=== PATIENT | male | born 1940 | race Two or more races ===

== ENCOUNTER 2016-07-17 13:54 | Inpatient (IN) | payer MEDICARE, BC ==
[~2016-07-17] VITALS: Ht 182.9 cm; Wt 83.9 kg
--- NOTE | 2016-07-17 14:26 | NUR ---
AAOX3, BIB FAMILY FOR MED.CLEARANCE PRIOR TO GPS ADMISSION FOR INCREASED AGITATION AND YELLING AT STAFF IN HIS CARE CENTER. PATIENT WAS CALM AT BS. SKIN IS WARM AND DRY. RESP IS EVEN AND UNLABORED WITH NAD NOTED. AWAITING MD FOR EVAL.
[2016-07-17] MEDS ORDERED: LORAZEPAM 1 MG TABLET ONE (15:10)
[2016-07-17] MEDS ORDERED: LORAZEPAM 1 MG TABLET PO ONE (15:30)
[2016-07-17 15:37] LABS: BASOPHILS % (AUTO) 0.6 % (0.0-2.0); EOSINOPHILS # (AUTO) 0.1 /CMM (0.0-0.7); EOSINOPHILS % (AUTO) 1.2 % (0.0-6.0); HEMATOCRIT 39 % (39-51); HEMOGLOBIN 13.3 g/dL (13.5-17.5); LYMPHOCYTES # (AUTO) 1.8 /CMM (0.8-4.8); LYMPHOCYTES % (AUTO) 27.7 % (20.0-44.0); MEAN CORPUSCULAR HEMOGLOBIN 30 PG (26.0-33.0); MEAN CORPUSCULAR HGB CONC 34 g/dl (31.0-36.0); MEAN CORPUSCULAR VOLUME 87 fL (80-96); MONOCYTES # (AUTO) 0.7 /CMM (0.1-1.30); MONOCYTES % (AUTO) 9.9 % (2.0-12.0); NEUTROPHILS % (AUTO) 60.6 % (43.0-81.0); PLATELET COUNT (AUTO) 185 /CMM (150-450); RDW COEFFICIENT OF VARIATION 13.1 (11.5-15.0); RED BLOOD CELL COUNT(AUTO) 4.45 MIL/uL (4.5-6.0); WHITE BLOOD COUNT (AUTO) 6.6 K/uL (4.3-11.0)
[2016-07-17 15:48] LABS: CALCIUM, SERUM 9.4 mg/dL (8.5-10.1); CARBON DIOXIDE 29 mmol/L (21-32); CHLORIDE 102 mmol/L (98-107); CREATININE 1.7 mg/dL (0.6-1.3); GLUCOSE 112 mg/dL (74-106); SODIUM SERUM 140 mmol/L (136-145); UREA NITROGEN, BLOOD 29 mg/dL (7-18)
[2016-07-17 15:50] LABS: POTASSIUM 2.8 mmol/L (3.5-5.1)
[2016-07-17 15:53] LABS: INR 3.09 (0.87-1.13); PROTHROMBIN TIME 32.4 SECS (9.5-12.7)
[2016-07-17 16:02] LABS: ALANINE AMINOTRANSFERASE 32 U/L (12-78); ALBUMIN 3.5 g/dL (3.4-5.0); ALKALINE PHOSPHATASE 51 U/L (46-116); ASPARTATE AMINOTRANSFERASE 25 U/L (15-37); BILIRUBIN,DIRECT 0.3 mg/dL (0.0-0.2); BILIRUBIN,TOTAL 1.2 mg/dL (0.2-1.0)
[2016-07-17 16:04] LABS: SALICYLATE 0.3 mg/dL (2.8-20.0)
[2016-07-17] MEDS ORDERED: POTASSIUM CHLORIDE 20 MEQ TAB.PRT.SR PO ONE (16:04)
[2016-07-17 16:05] LABS: ACETAMINOPHEN 0 ug/ml (10-30); ALCOHOL, BLOOD < 3 mg/dL (0-0)
--- NOTE | 2016-07-17 16:08 | NUR ---
REPORT GIVEN TO MAXIMO LOPEZ FOR CHRISTIANO
[2016-07-17] MEDS ORDERED: POTASSIUM CHLORIDE 10 MEQ TABLET.SA PO ONE (16:30)
--- NOTE | 2016-07-17 16:30 | NUR ---
REVIEW NURSE NOTE: ADMITTED 76 Y/O MALE FROM ER ON 5150 HOLD FOR GD PER 5150 HOLD PATIENT HAS BEEN UNCOOPERATIVE WITH CARE AND FAMILY .PER FAMILY PATIENT LOSING WEIGHT D/T NOT EATING AND PATIENT AGITATED IN FACILITY.DURING 1:1 ASSESSMENT PATIENT ALERT CONFUSED EASILY AGITATED ,NOT FOLLOWING DIRECTION ,PATIENT STATED LET ME .LET ME GO PATIENT NEEDS CONSTANT REDIRECTION .UNSTEADY GAIT ,PATIENT HAS HX OF DSYTHYMIA,MALIGNANT TUMOR OF PROSTATE,VARCOICOSE VEINS OF LOWER EXTREMITY,ALZHEIMER DISEASE HYPERCHOLESTEROLEMIA,KIDNEY STONE. PATIENT SEEN BY ,DR.SIMONA DICKERSONOPATHY NOTIFIED OF ADMISSION .ALL BELONGINGS CHECKED IN BY STAFF MHW,PATIENT'S RIGHT HAND BOOK GIVEN AND EXPLAINED TO PATIENT .START PATIENT ON Q15 MINUTES SAFTEY CHECK.
[2016-07-17] MEDS ORDERED: MEMA10TA21 PO (16:42)
[2016-07-17] MEDS ORDERED: CHOL50004 PO (16:42)
[2016-07-17] MEDS ORDERED: WARF3TAB29 PO (16:42)
[2016-07-17] MEDS ORDERED: MEGE400O PO (16:42)
[2016-07-17] MEDS ORDERED: SIMV20TA6 PO (16:42)
[2016-07-17] MEDS ORDERED: CITA10TA17 PO (16:42)
[2016-07-17] MEDS ORDERED: POTA10TA15 PO (16:42)
[2016-07-17] MEDS ORDERED: MULT1TAB74 PO (16:42)
[2016-07-17] MEDS ORDERED: HYDR12.5 PO (16:42)
[2016-07-17] MEDS ORDERED: LEVO250S7 PO (16:42)
[2016-07-17] MEDS ORDERED: TAMS0.4C34 PO (16:42)
[2016-07-17] MEDS ORDERED: WARF2TAB6 PO (16:46)
[2016-07-17] MEDS ORDERED: ACET325T53 PO (16:46)
[2016-07-17] MEDS ORDERED: MAGN400O6 PO (16:52)
[2016-07-17] MEDS ORDERED: DOCU-25 PO (16:52)
[2016-07-17] MEDS ORDERED: MAG HYDROX/AL HYDROX/SIMETH 30 ML UDC PO PRN (17:30)
[2016-07-17] MEDS ORDERED: MAGNESIUM HYDROXIDE 30 ML UDC PO PRN (17:30)
[2016-07-17 19:56] VITALS: BP 99/63
[2016-07-17] MEDS: ZOLPIDEM TARTRATE 10 MG TABLET PO PRN (21:36)
[2016-07-17] MEDS: SERTRALINE HCL 25 MG TABLET PO SCH (21:36)
[2016-07-18] MEDS: LORAZEPAM 0.5 MG TABLET PO PRN (01:56)
[2016-07-18] MEDS: ACETAMINOPHEN 325 MG TABLET PO PRN (01:56)
--- NOTE | 2016-07-18 05:37 | NUR ---
GPS RN NOTE: MED RECONCILIATION FOLLOWED UP TO LE[facility]ON FAROOQ.
[2016-07-18 07:20] LABS: INR 2.68 (0.87-1.13); PROTHROMBIN TIME 29.2 SECS (9.5-12.7)
[2016-07-18 07:21] LABS: ALBUMIN 3.5 g/dL (3.4-5.0); BILIRUBIN,TOTAL 1.2 mg/dL (0.2-1.0); CALCIUM, SERUM 9.7 mg/dL (8.5-10.1); CREATININE 1.6 mg/dL (0.6-1.3)
[2016-07-18 07:25] LABS: CHOLESTEROL 130 mg/dL (<200); HDL CHOLESTEROL 35 mg/dL (40-60); LDL 85 mg/dL (0-99); TRIGLYCERIDES 91 mg/dL (30-150)
[2016-07-18 08:05] LABS: POTASSIUM 2.8 mmol/L (3.5-5.1)
[2016-07-18] MEDS: ARIPIPRAZOLE 2 MG TABLET PO SCH ×2 (08:46→17:37)
[2016-07-18 08:53] VITALS: BP 114/63
[2016-07-18] MEDS ORDERED: POTASSIUM CHLORIDE 20 MEQ TAB.PRT.SR PO ONE ×2 (09:00→13:30)
[2016-07-18] MEDS ORDERED: MAGNESIUM HYDROXIDE 30 ML UDC PO PRN (14:00)
[2016-07-18] MEDS ORDERED: ACETAMINOPHEN 325 MG TABLET PO PRN (14:00)
[2016-07-18] MEDS ORDERED: MULTIVITS,TH W-FE,OTHER MIN 1 TAB TABLET PO SCH (14:30)
[2016-07-18 16:02] VITALS: BP 100/59
[2016-07-18] MEDS: MEMANTINE HCL 5 MG TABLET PO SCH (17:37)
--- NOTE | 2016-07-18 17:41 | NUR ---
Initial discharge plan: Pt. is from [facility] [address] [place] [address] . Per pt's daughter, Hedy Carrizales [phone], the family is looking into moving the patient to another facility. Pt may need to go to a SNF first before he is transferred to either back to [facility] or the new facility. SW will work with pt. and family and will arrange for safe and proper discharge. Pt's ex , Kathy Carrizales is also involved [phone].
[2016-07-18] MEDS: WARFARIN SODIUM 2 MG TABLET PO SCH (18:12)
[2016-07-18 20:00] VITALS: BP 101/61
[2016-07-18] MEDS: SIMVASTATIN 20 MG TABLET PO SCH (21:17)
[2016-07-18] MEDS: SERTRALINE HCL 25 MG TABLET PO SCH (21:17)
[2016-07-19 07:51] LABS: BASOPHILS % (AUTO) 0.4 % (0.0-2.0); EOSINOPHILS # (AUTO) 0.2 /CMM (0.0-0.7); EOSINOPHILS % (AUTO) 3.5 % (0.0-6.0); HEMATOCRIT 40 % (39-51); HEMOGLOBIN 13.3 g/dL (13.5-17.5); LYMPHOCYTES # (AUTO) 1.8 /CMM (0.8-4.8); LYMPHOCYTES % (AUTO) 29.9 % (20.0-44.0); MEAN CORPUSCULAR HEMOGLOBIN 30 PG (26.0-33.0); MEAN CORPUSCULAR HGB CONC 34 g/dl (31.0-36.0); MEAN CORPUSCULAR VOLUME 89 fL (80-96); MONOCYTES # (AUTO) 0.6 /CMM (0.1-1.30); MONOCYTES % (AUTO) 10.9 % (2.0-12.0); NEUTROPHILS # (AUTO) 3.3 /CMM (1.8-8.9); NEUTROPHILS % (AUTO) 55.3 % (43.0-81.0); PLATELET COUNT (AUTO) 188 /CMM (150-450); RDW COEFFICIENT OF VARIATION 14.3 (11.5-15.0); RED BLOOD CELL COUNT(AUTO) 4.47 MIL/uL (4.5-6.0); WHITE BLOOD COUNT (AUTO) 5.9 K/uL (4.3-11.0)
[2016-07-19 08:00] VITALS: BP 119/69
[2016-07-19 08:21] LABS: CALCIUM, SERUM 9.4 mg/dL (8.5-10.1); CREATININE 1.4 mg/dL (0.6-1.3); PHOSPHORUS 3.2 mg/dL (2.5-4.9); POTASSIUM 3.5 mmol/L (3.5-5.1)
[2016-07-19 08:24] LABS: INR 2.34 (0.87-1.13); PROTHROMBIN TIME 25.5 SECS (9.5-12.7)
[2016-07-19] MEDS: MEGESTROL ACETATE SUSP 400 MG/10 ML UDC PO SCH (08:34)
[2016-07-19] MEDS: TAMSULOSIN 0.4 MG CAP.SR.24H PO SCH (08:34)
[2016-07-19] MEDS: MULTIVIT, IRON, MIN NO. 8, FA 1 TAB TABLET PO SCH (08:34)
[2016-07-19] MEDS: MEMANTINE HCL 5 MG TABLET PO SCH ×2 (08:34→16:56)
[2016-07-19] MEDS: ARIPIPRAZOLE 2 MG TABLET PO SCH ×2 (08:35→16:56)
[2016-07-19] MEDS: CHOLECALCIFEROL 1,000 UNIT TABLET (VIT D3) PO SCH (08:37)
--- NOTE | 2016-07-19 10:00 | NUR ---
PATIENT WAS BROUGHT DOWN TO CT. PATIENT THEN REFUSED TO DO CT CHEST.
--- NOTE | 2016-07-19 15:11 | NUR ---
DR. GARCIA NOTIFIED THAT PT IS 25.5 QND INR 2.34 AND SAID CONTINUE SAME DOSE OF COUMADIN 2 MG.
[2016-07-19 16:00] VITALS: BP 117/62
[2016-07-19] MEDS: WARFARIN SODIUM 2 MG TABLET PO SCH (16:57)
[2016-07-19 20:00] VITALS: BP 98/60
[2016-07-19] MEDS: SIMVASTATIN 20 MG TABLET PO SCH (21:33)
[2016-07-19] MEDS: SERTRALINE HCL 25 MG TABLET PO SCH (21:33)
[2016-07-20 07:45] VITALS: BP 113/66
[2016-07-20] MEDS: ARIPIPRAZOLE 2 MG TABLET PO SCH ×2 (09:32→17:00)
[2016-07-20] MEDS: MEGESTROL ACETATE SUSP 400 MG/10 ML UDC PO SCH (09:32)
[2016-07-20] MEDS: MULTIVIT, IRON, MIN NO. 8, FA 1 TAB TABLET PO SCH (09:32)
[2016-07-20] MEDS: POTASSIUM CHLORIDE 10 MEQ TABLET.SA PO SCH (09:34)
[2016-07-20] MEDS: TAMSULOSIN 0.4 MG CAP.SR.24H PO SCH (09:34)
[2016-07-20] MEDS: MEMANTINE HCL 5 MG TABLET PO SCH ×2 (09:34→17:56)
[2016-07-20] MEDS: LORAZEPAM 0.5 MG TABLET PO PRN (11:11)
[2016-07-20 16:52] VITALS: BP 125/68
[2016-07-20] MEDS: WARFARIN SODIUM 2 MG TABLET PO SCH (18:01)
--- NOTE | 2016-07-20 19:30 | NUR ---
GPS NOTES RECIEVED PATIENT SITTING IN THE DAY ROOM. NO SIGNS OF DISTRESS NOTED. NO FACIAL GRIMACING OR OTHER SIGNS OF PAIN. APPEARS TO BE AGITATED AND IS YELLING AT STAFF. SAFETY MEASURES IMPLEMENTED. WILL CONTINUE TO MONITOR
[2016-07-20 20:00] VITALS: BP 103/64
[2016-07-20] MEDS: SIMVASTATIN 20 MG TABLET PO SCH (21:41)
[2016-07-20] MEDS: MIRTAZAPINE 15 MG TABLET PO SCH (21:44)
--- NOTE | 2016-07-20 22:00 | NUR ---
GPS NOTES PATIENT TOOK MEDICATION CRUSHED WITH APPLESAUCE. ENCOURAGED PATIENT TO FINISH APPLESAUCE BUT PATIENT BECAME AGITATED AND SAID TO LEAVE HIM ALONE.
--- NOTE | 2016-07-21 03:18 | NUR ---
GPS NOTES PATIENT ASLEEP, BREATHING EVEN AND UNLABORED. NO SIGNS OF DISTRESS NOTED. WILL CONTINUE TO MONITOR
--- NOTE | 2016-07-21 06:24 | NUR ---
GPS NOTES PATIENT ASLEEP, EASILY AROUSABLE TO TOUCH. BREATHING EVEN AND UNLABORED. NO S/S OF DISTRESS OR PAIN NOTED. ALL DUE MEDS ADMINISTERED, CRUSHED WITH APPLESAUCE. EASILY AGITATED, YELLS TO "GO AWAY" AND THAT HE WANTS TO BE LEFT ALONE. PT EVAL PENDING. NO CHANGES OVERNIGHT. BED IN LOW/LOCKED POSITION. BED ALARM ON. WILL ENDORSE TO AM SHIFT CHRISTIANO.
[2016-07-21 08:40] LABS: INR 3.07 (0.87-1.13); PROTHROMBIN TIME 33.5 SECS (9.5-12.7)
[2016-07-21] MEDS: MEGESTROL ACETATE SUSP 400 MG/10 ML UDC PO SCH (09:34)
[2016-07-21] MEDS: ARIPIPRAZOLE 2 MG TABLET PO SCH ×2 (09:34→17:56)
[2016-07-21] MEDS: TAMSULOSIN 0.4 MG CAP.SR.24H PO SCH (09:34)
[2016-07-21] MEDS: MULTIVIT, IRON, MIN NO. 8, FA 1 TAB TABLET PO SCH (09:34)
[2016-07-21] MEDS: MEMANTINE HCL 5 MG TABLET PO SCH ×2 (09:35→17:56)
[2016-07-21] MEDS: LORAZEPAM 0.5 MG TABLET PO PRN ×2 (09:38→16:47)
--- NOTE | 2016-07-21 09:38 | NUR ---
administered ativan 0.5 mg po prn for anxiety yelling, screaming, paranoia, v/s taken bp-130/80, p-80, continued monitoring.
[2016-07-21 10:14] VITALS: BP 130/80
[2016-07-21 15:43] VITALS: BP 125/82
[2016-07-21] MEDS: WARFARIN SODIUM 2 MG TABLET PO SCH (17:00)
[2016-07-21 17:13] LABS: APPEARANCE,URINE CLEAR (CLEAR); BILIRUBIN,URINE NEGATIVE (NEGATIVE); BLOOD, URINE NEGATIVE Ery/uL (NEGATIVE); COLOR,URINE YELLOW (YELLOW); KETONES,URINE 1+ (NEGATIVE); LEUKOCYTE ESTERASE ,URINE NEGATIVE (NEGATIVE); NITRITE, URINE NEGATIVE (NEGATIVE); PROTEIN,URINE TRACE mg/dl (NEGATIVE); UGLUCOSE NEGATIVE (NEGATIVE)
[2016-07-21 17:16] LABS: ADD URINE CULTURE NO; BACTERIA,URINE Few /HPF (None Seen); RBC,URINE 0-2 /HPF (0-2); SQUAMOUS EPITHELIAL CELL,UR Rare /HPF (None Seen); WBC,URINE 0-2 /HPF (0-3)
[2016-07-21 17:17] LABS: HYALINE CASTS, URINE Few /LPF (None Seen)
--- NOTE | 2016-07-21 18:19 | NUR ---
GPS/RN COUMADIN HELD AT 1700, PER DR RADHA GUTIERREZ. INR 3.7
[2016-07-21 20:08] VITALS: BP 126/76
[2016-07-21] MEDS: MIRTAZAPINE 15 MG TABLET PO SCH (21:46)
[2016-07-21] MEDS: SIMVASTATIN 20 MG TABLET PO SCH (21:46)
--- NOTE | 2016-07-22 01:10 | NUR ---
Pt has been fragmented, confused, disorganized, blunted, giving unrelated responses to the questions asked, & vague but med compliant.
[2016-07-22 07:43] LABS: INR 2.7 (0.87-1.13); PROTHROMBIN TIME 29.4 SECS (9.5-12.7)
[2016-07-22 08:00] VITALS: BP 119/55
[2016-07-22] MEDS: ARIPIPRAZOLE 2 MG TABLET PO SCH ×2 (08:48→16:24)
[2016-07-22] MEDS: DOCUSATE SODIUM 100 MG CAPSULE PO PRN (08:48)
[2016-07-22] MEDS: CHOLECALCIFEROL 1,000 UNIT TABLET (VIT D3) PO SCH (08:48)
[2016-07-22] MEDS: MULTIVIT, IRON, MIN NO. 8, FA 1 TAB TABLET PO SCH (08:48)
[2016-07-22] MEDS: MEMANTINE HCL 5 MG TABLET PO SCH ×2 (08:48→16:24)
[2016-07-22] MEDS: TAMSULOSIN 0.4 MG CAP.SR.24H PO SCH (08:48)
[2016-07-22] MEDS: POTASSIUM CHLORIDE 10 MEQ TABLET.SA PO SCH (08:49)
[2016-07-22] MEDS: MEGESTROL ACETATE SUSP 400 MG/10 ML UDC PO SCH (08:49)
[2016-07-22] MEDS: BOOST FOOD- BERRY 237 ML BOX PO SCH (14:29)
[2016-07-22 16:00] VITALS: BP 150/61
[2016-07-22] MEDS: WARFARIN SODIUM 2 MG TABLET PO SCH (16:25)
--- NOTE | 2016-07-22 17:30 | NUR ---
gps staff command and control officer: notes dr. lockwood here to see pt and informed md that pt's daughter wants to be called for update. phone number given to .
[2016-07-22] MEDS: SIMVASTATIN 20 MG TABLET PO SCH (21:55)
[2016-07-22] MEDS: MIRTAZAPINE 15 MG TABLET PO SCH (21:56)
[2016-07-22] MEDS: ZOLPIDEM TARTRATE 10 MG TABLET PO PRN (21:56)
[2016-07-23 03:47] VITALS: BP 138/77
[2016-07-23] MEDS: BOOST FOOD- BERRY 237 ML BOX PO SCH ×3 (06:00→13:13)
[2016-07-23 07:38] LABS: INR 2.4 (0.87-1.13); PROTHROMBIN TIME 26.2 SECS (9.5-12.7)
[2016-07-23 08:00] VITALS: BP 134/74
[2016-07-23] MEDS: TAMSULOSIN 0.4 MG CAP.SR.24H PO SCH (08:27)
[2016-07-23] MEDS: MEGESTROL ACETATE SUSP 400 MG/10 ML UDC PO SCH (08:28)
[2016-07-23] MEDS: MEMANTINE HCL 5 MG TABLET PO SCH ×2 (08:28→17:28)
[2016-07-23] MEDS: MULTIVIT, IRON, MIN NO. 8, FA 1 TAB TABLET PO SCH (08:28)
[2016-07-23 16:17] VITALS: BP 113/77
[2016-07-23] MEDS: WARFARIN SODIUM 2 MG TABLET PO SCH (17:30)
[2016-07-23 20:06] VITALS: BP 157/85
[2016-07-23] MEDS ORDERED: ARIPIPRAZOLE 2 MG TABLET PO SCH (22:00)
[2016-07-23] MEDS: ARIPIPRAZOLE 2 MG TABLET PO SCH (22:09)
[2016-07-23] MEDS: MIRTAZAPINE 15 MG TABLET PO SCH (22:10)
[2016-07-23] MEDS: ZOLPIDEM TARTRATE 10 MG TABLET PO PRN (22:11)
[2016-07-23] MEDS: SIMVASTATIN 20 MG TABLET PO SCH (22:11)
[2016-07-24] MEDS: BOOST FOOD- BERRY 237 ML BOX PO SCH ×3 (06:01→14:23)
[2016-07-24 07:57] LABS: INR 2.3 (0.87-1.13)
[2016-07-24 08:19] VITALS: BP 120/69
--- NOTE | 2016-07-24 09:22 | NUR ---
EDY spoke with Hedy Carrizales [phone] on the phone, pt's daughter, who requested to speak with the MD. EDY sent information to MD to contact the family. EDY and Hedy discussed placement options and what would happen after discharge.
--- NOTE | 2016-07-24 09:23 | NUR ---
Pt. was referred and accepted to [facility] [address], [place] [address] . Daughter, Hedy [phone] was notified. Addendum: 08/01/16 at 1438 by ABRAN SNOW Maciel Quezada from Admission pt is accepted.
[2016-07-24] MEDS: CHOLECALCIFEROL 1,000 UNIT TABLET (VIT D3) PO SCH (09:52)
[2016-07-24] MEDS: MEGESTROL ACETATE SUSP 400 MG/10 ML UDC PO SCH (09:53)
[2016-07-24] MEDS: MULTIVIT, IRON, MIN NO. 8, FA 1 TAB TABLET PO SCH (09:53)
[2016-07-24] MEDS: TAMSULOSIN 0.4 MG CAP.SR.24H PO SCH (09:53)
[2016-07-24] MEDS: MEMANTINE HCL 5 MG TABLET PO SCH ×2 (09:53→18:12)
[2016-07-24] MEDS: POTASSIUM CHLORIDE 10 MEQ TABLET.SA PO SCH (09:54)
[2016-07-24 15:41] VITALS: BP 130/70
[2016-07-24] MEDS: DOCUSATE SODIUM 100 MG CAPSULE PO PRN (18:12)
[2016-07-24] MEDS: WARFARIN SODIUM 2 MG TABLET PO SCH (18:19)
--- NOTE | 2016-07-24 19:30 | NUR ---
RN NOTES RECEIVED PT. AWAKE SITTING ON THE TONI CHAIR, WATCHING TV ON THE DINING ROOM WILL CONTINUE TO MONITOR
[2016-07-24 20:00] VITALS: BP 129/79
[2016-07-24 20:30] VITALS: BP 129/79
[2016-07-24] MEDS: ARIPIPRAZOLE 2 MG TABLET PO SCH (22:03)
[2016-07-24] MEDS: SIMVASTATIN 20 MG TABLET PO SCH (22:03)
[2016-07-24] MEDS: MIRTAZAPINE 15 MG TABLET PO SCH (22:03)
[2016-07-25] MEDS: ZOLPIDEM TARTRATE 10 MG TABLET PO PRN ×2 (02:07→22:02)
[2016-07-25] MEDS: BOOST FOOD- BERRY 237 ML BOX PO SCH ×3 (05:56→15:24)
--- NOTE | 2016-07-25 06:17 | NUR ---
RN NOTES PT REFUSED STRAIGHT CATH
[2016-07-25 07:30] LABS: INR 2.49 (0.87-1.13); PROTHROMBIN TIME 27.1 SECS (9.5-12.7)
[2016-07-25 08:00] VITALS: BP 153/91
[2016-07-25] MEDS ORDERED: ARIPIPRAZOLE 2 MG TABLET PO SCH (09:00)
[2016-07-25] MEDS: TAMSULOSIN 0.4 MG CAP.SR.24H PO SCH (09:20)
[2016-07-25] MEDS: MULTIVIT, IRON, MIN NO. 8, FA 1 TAB TABLET PO SCH (09:20)
[2016-07-25] MEDS: MEGESTROL ACETATE SUSP 400 MG/10 ML UDC PO SCH (09:20)
[2016-07-25] MEDS: MEMANTINE HCL 5 MG TABLET PO SCH ×2 (09:20→18:21)
--- NOTE | 2016-07-25 10:10 | NUR ---
WOUND CARE CONSULT: PATIENT SEEN AND SKIN ASSESSMENT DONE. PATIENT INCONTINENT, JOSELO 17, AMBULATORY, INDEPENDENT WITH BED MOBILITY. SEE TODAY'S SKIN ASSESSMENT IN PCS ALONG WITH RECOMMENDATIONS DISCUSSED WITH NURSING STAFF INCLUDING MOISTURE PROTECTION WITH Z GUARD ORDERED. IN AGREEMENT WITH PLAN OF CARE. Addendum: 07/25/16 at 1012 by LUIS ANGEL HOWARD WNDNU Amended: Links added.
[2016-07-25] MEDS ORDERED: Z GUARD REMEDY 2 OZ OINT TP PRN (10:30)
[2016-07-25] MEDS: NEOMY SULF/BACITRAC ZN/POLY 15 GM TUBE TP SCH (11:12)
[2016-07-25 16:00] VITALS: BP 147/85
[2016-07-25] MEDS: WARFARIN SODIUM 2 MG TABLET PO SCH (18:22)
[2016-07-25 20:00] VITALS: BP 115/71
[2016-07-25] MEDS ORDERED: OLANZAPINE 2.5 MG TABLET PO SCH (22:00)
[2016-07-25] MEDS: MIRTAZAPINE 15 MG TABLET PO SCH (22:02)
[2016-07-25] MEDS: SIMVASTATIN 20 MG TABLET PO SCH (22:02)
[2016-07-26] MEDS: BOOST FOOD- BERRY 237 ML BOX PO SCH ×3 (07:42→14:15)
[2016-07-26 07:47] LABS: INR 2.1 (0.87-1.13); PROTHROMBIN TIME 23.6 SECS (9.5-12.7)
[2016-07-26 08:05] VITALS: BP 152/75
[2016-07-26] MEDS: MEGESTROL ACETATE SUSP 400 MG/10 ML UDC PO SCH (08:05)
[2016-07-26] MEDS: MEMANTINE HCL 5 MG TABLET PO SCH ×2 (08:05→16:54)
[2016-07-26] MEDS: POTASSIUM CHLORIDE 10 MEQ TABLET.SA PO SCH (08:05)
[2016-07-26] MEDS: TAMSULOSIN 0.4 MG CAP.SR.24H PO SCH (08:05)
[2016-07-26] MEDS: MULTIVIT, IRON, MIN NO. 8, FA 1 TAB TABLET PO SCH (08:05)
[2016-07-26] MEDS: CHOLECALCIFEROL 1,000 UNIT TABLET (VIT D3) PO SCH (08:06)
[2016-07-26] MEDS: NEOMY SULF/BACITRAC ZN/POLY 15 GM TUBE TP SCH (10:28)
--- NOTE | 2016-07-26 11:36 | NUR ---
ESVIN ADLER NOTIFIED ABOUT THE PT OF 23.6 AND INR 2.10 SAID CONTINUE SAME DOSE OF COUMADIN 2 MG.
[2016-07-26 16:00] VITALS: BP 103/81
[2016-07-26] MEDS: WARFARIN SODIUM 2 MG TABLET PO SCH (16:54)
--- NOTE | 2016-07-26 19:30 | NUR ---
GPS RN NOTE, RECEIVED PATIENT AWAKE AND IN BED, NO S/S OR COMPLAINTS OF PAIN AT THIS TIME. PATIENT IS DISPLAYING NO S/S OF APPARENT DISTRESS AT THIS TIME. PATIENT BREATHING IS UNLABORED WITH EQUAL RISE AND FALL OF THE CHEST. PATIENT IS ALERT AND ORIENTED X 1 ON ROOM AIR WITH A SPO2 99%. PATIENT COMPLIANT WITH MEDICATIONS, ANXIOUS, EASILY AGITATED WITH CARE, DISORGANIZED, CONFUSED AT TIMES, AND NEEDS REORIENTATION. PATIENT DENIES SUICIDE AND HOMICIDAL IDEATIONS AT THIS TIME. PATIENT ASSISTED WITH TURNING AND REPOSITIONING Q2HR AND PRN FOR COMFORT AND CIRCULATION. PATIENT HAS NO NEEDS AT THIS TIME. PATIENT REFUSED SKIN ASSESSMENT TODAY. PATIENT EDUCATED ON THE USE OF THE CALL POST. PATIENT BED SIDE RAILS UP X2 FOR SAFETY, BED IS LOCKED AND LOW WILL CONTINUE TO MONITOR AND MAINTAIN SAFETY.
[2016-07-26 20:00] VITALS: BP 133/77
[2016-07-26] MEDS: SIMVASTATIN 20 MG TABLET PO SCH (21:44)
[2016-07-26] MEDS: OLANZAPINE 2.5 MG TABLET PO SCH (21:44)
[2016-07-26] MEDS: MIRTAZAPINE 15 MG TABLET PO SCH (21:44)
--- NOTE | 2016-07-27 08:00 | NUR ---
RN NOTES RECEIVED PT RESTING BED WITH NAD. NOTED WITH CONFUSION, REDIRECTED AND REORIENTED PT TO REALITY. SAFETY ENSURED. NO SUICIDAL OR HOMICIDAL IDEATION NOTED.
[2016-07-27 08:23] VITALS: BP 167/74
[2016-07-27] MEDS: MEMANTINE HCL 5 MG TABLET PO SCH ×2 (08:49→16:40)
[2016-07-27] MEDS: MULTIVIT, IRON, MIN NO. 8, FA 1 TAB TABLET PO SCH (08:49)
[2016-07-27] MEDS: MEGESTROL ACETATE SUSP 400 MG/10 ML UDC PO SCH (08:49)
[2016-07-27] MEDS: TAMSULOSIN 0.4 MG CAP.SR.24H PO SCH (08:49)
[2016-07-27] MEDS: NEOMY SULF/BACITRAC ZN/POLY 15 GM TUBE TP SCH (08:50)
[2016-07-27] MEDS: BOOST FOOD- BERRY 237 ML BOX PO SCH ×2 (10:00→14:00)
[2016-07-27 16:00] VITALS: BP 118/77
[2016-07-27 16:11] VITALS: BP 118/77
[2016-07-27] MEDS: WARFARIN SODIUM 2 MG TABLET PO SCH (16:51)
--- NOTE | 2016-07-27 19:06 | NUR ---
RN CLOSING NOTES PT ON GERICHAIR AND REMAINS CONFUSED. MED GIVEN CRUSHED, COMPLIANT WITH MEDS. WILL ENDORSE TO NEXT SHIFT FOR CONTINUITY OF CARE IN STABLE CONDITION
[2016-07-27] MEDS: LORAZEPAM 0.5 MG TABLET PO PRN (19:54)
--- NOTE | 2016-07-27 19:54 | NUR ---
GPS/RN NOTE: PATIENT AWAKE, CONFUSED, FIDGETY, ATTEMPTING TO GET UP, FALL RISK, FALL PRECAUTIONARY MEASURES MAINTAINED. WILL CONTINUE TO MONITOR FOR SAFETY
[2016-07-27 20:00] VITALS: BP 126/69
[2016-07-27] MEDS: MIRTAZAPINE 15 MG TABLET PO SCH (21:02)
[2016-07-27] MEDS: OLANZAPINE 2.5 MG TABLET PO SCH (21:02)
[2016-07-27] MEDS: SIMVASTATIN 20 MG TABLET PO SCH (21:03)
[2016-07-28 07:29] LABS: BASOPHILS % (AUTO) 0.6 % (0.0-2.0); EOSINOPHILS # (AUTO) 0.2 /CMM (0.0-0.7); EOSINOPHILS % (AUTO) 2.5 % (0.0-6.0); HEMATOCRIT 43 % (39-51); HEMOGLOBIN 14.3 g/dL (13.5-17.5); LYMPHOCYTES # (AUTO) 2.7 /CMM (0.8-4.8); LYMPHOCYTES % (AUTO) 33.9 % (20.0-44.0); MEAN CORPUSCULAR HEMOGLOBIN 30 PG (26.0-33.0); MEAN CORPUSCULAR HGB CONC 33 g/dl (31.0-36.0); MEAN CORPUSCULAR VOLUME 90 fL (80-96); MONOCYTES # (AUTO) 0.7 /CMM (0.1-1.30); MONOCYTES % (AUTO) 8.9 % (2.0-12.0); NEUTROPHILS # (AUTO) 4.3 /CMM (1.8-8.9); NEUTROPHILS % (AUTO) 54.1 % (43.0-81.0); PLATELET COUNT (AUTO) 236 /CMM (150-450); RDW COEFFICIENT OF VARIATION 14.6 (11.5-15.0); RED BLOOD CELL COUNT(AUTO) 4.83 MIL/uL (4.5-6.0); WHITE BLOOD COUNT (AUTO) 7.9 K/uL (4.3-11.0)
[2016-07-28 07:42] LABS: CALCIUM, SERUM 9.8 mg/dL (8.5-10.1); CREATININE 1.6 mg/dL (0.6-1.3); MAGNESIUM 1.9 mg/dL (1.8-2.4); PHOSPHORUS 3.5 mg/dL (2.5-4.9); POTASSIUM 3.1 mmol/L (3.5-5.1)
[2016-07-28 08:00] VITALS: BP 128/96
[2016-07-28] MEDS: MEMANTINE HCL 5 MG TABLET PO SCH ×2 (08:31→17:27)
[2016-07-28] MEDS: TAMSULOSIN 0.4 MG CAP.SR.24H PO SCH (08:31)
[2016-07-28] MEDS: MEGESTROL ACETATE SUSP 400 MG/10 ML UDC PO SCH (08:31)
[2016-07-28] MEDS: POTASSIUM CHLORIDE 10 MEQ TABLET.SA PO SCH (08:31)
[2016-07-28] MEDS: MULTIVIT, IRON, MIN NO. 8, FA 1 TAB TABLET PO SCH (08:31)
[2016-07-28] MEDS: BOOST FOOD- BERRY 237 ML BOX PO SCH ×3 (08:33→14:00)
[2016-07-28] MEDS: NEOMY SULF/BACITRAC ZN/POLY 15 GM TUBE TP SCH (09:03)
[2016-07-28 10:17] LABS: INR 2.47 (0.87-1.13)
[2016-07-28 16:00] VITALS: BP 109/64
[2016-07-28] MEDS: WARFARIN SODIUM 2 MG TABLET PO SCH (17:28)
[2016-07-28 20:12] VITALS: BP 97/63
[2016-07-28] MEDS: OLANZAPINE 2.5 MG TABLET PO SCH (21:03)
[2016-07-28] MEDS: MIRTAZAPINE 15 MG TABLET PO SCH (21:05)
[2016-07-28] MEDS: SIMVASTATIN 20 MG TABLET PO SCH (21:05)
--- NOTE | 2016-07-28 21:05 | NUR ---
GPS/RN NOTE: PATIENT CONFUSED, KEEPS MOVING WHILE SITTING, UNABLE TO SLEEP. ATIVAN 0.5 MG TAB 1 PO GIVEN.
[2016-07-28] MEDS: LORAZEPAM 0.5 MG TABLET PO PRN (21:07)
[2016-07-29] MEDS: BOOST FOOD- BERRY 237 ML BOX PO SCH ×3 (05:10→13:48)
[2016-07-29 08:00] VITALS: BP 158/65
[2016-07-29] MEDS: MEMANTINE HCL 5 MG TABLET PO SCH ×2 (10:16→17:21)
[2016-07-29] MEDS: TAMSULOSIN 0.4 MG CAP.SR.24H PO SCH (10:16)
[2016-07-29] MEDS: MULTIVIT, IRON, MIN NO. 8, FA 1 TAB TABLET PO SCH (10:16)
[2016-07-29] MEDS: MEGESTROL ACETATE SUSP 400 MG/10 ML UDC PO SCH (10:16)
[2016-07-29] MEDS: CHOLECALCIFEROL 1,000 UNIT TABLET (VIT D3) PO SCH (10:24)
[2016-07-29] MEDS: NEOMY SULF/BACITRAC ZN/POLY 15 GM TUBE TP SCH (10:25)
--- NOTE | 2016-07-29 14:36 | NUR ---
EDY spoke with pt's daughter Hedy Carrizales [phone] who is uncertain to where they want pt. to be discharged to. She will speak with MD and will notify EDY of final decision.
[2016-07-29] MEDS: WARFARIN SODIUM 2 MG TABLET PO SCH (17:22)
[2016-07-29] MEDS: ACETAMINOPHEN 325 MG TABLET PO PRN (19:49)
[2016-07-29 20:00] VITALS: BP 113/65
[2016-07-29] MEDS: LORAZEPAM 0.5 MG TABLET PO PRN (21:47)
[2016-07-29] MEDS: SIMVASTATIN 20 MG TABLET PO SCH (21:47)
[2016-07-29] MEDS: ZOLPIDEM TARTRATE 10 MG TABLET PO PRN (22:46)
[2016-07-30] MEDS: BOOST FOOD- BERRY 237 ML BOX PO SCH ×3 (06:42→12:17)
[2016-07-30 08:00] VITALS: BP 109/52
[2016-07-30] MEDS: MEGESTROL ACETATE SUSP 400 MG/10 ML UDC PO SCH (08:31)
[2016-07-30] MEDS: TAMSULOSIN 0.4 MG CAP.SR.24H PO SCH (08:31)
[2016-07-30] MEDS: MULTIVIT, IRON, MIN NO. 8, FA 1 TAB TABLET PO SCH (08:31)
[2016-07-30] MEDS: NEOMY SULF/BACITRAC ZN/POLY 15 GM TUBE TP SCH (08:31)
[2016-07-30] MEDS: POTASSIUM CHLORIDE 10 MEQ TABLET.SA PO SCH (08:31)
[2016-07-30] MEDS: MEMANTINE HCL 5 MG TABLET PO SCH ×2 (08:31→17:36)
[2016-07-30 09:29] LABS: BASOPHILS % (AUTO) 0.4 % (0.0-2.0); EOSINOPHILS % (AUTO) 0.2 % (0.0-6.0); HEMATOCRIT 44 % (39-51); HEMOGLOBIN 14.1 g/dL (13.5-17.5); LYMPHOCYTES # (AUTO) 1.5 /CMM (0.8-4.8); MEAN CORPUSCULAR HEMOGLOBIN 29 PG (26.0-33.0); MEAN CORPUSCULAR HGB CONC 33 g/dl (31.0-36.0); MEAN CORPUSCULAR VOLUME 89 fL (80-96); MONOCYTES # (AUTO) 0.8 /CMM (0.1-1.30); MONOCYTES % (AUTO) 7.2 % (2.0-12.0); NEUTROPHILS # (AUTO) 8.5 /CMM (1.8-8.9); NEUTROPHILS % (AUTO) 78.2 % (43.0-81.0); PLATELET COUNT (AUTO) 245 /CMM (150-450); RDW COEFFICIENT OF VARIATION 14.5 (11.5-15.0); RED BLOOD CELL COUNT(AUTO) 4.89 MIL/uL (4.5-6.0); WHITE BLOOD COUNT (AUTO) 10.9 K/uL (4.3-11.0)
[2016-07-30 16:00] VITALS: BP 126/73
[2016-07-30] MEDS: WARFARIN SODIUM 2 MG TABLET PO SCH (17:00)
[2016-07-30 18:10] LABS: INR 3.1 (0.87-1.13); PROTHROMBIN TIME 35.7 SECS (9.5-12.7)
--- NOTE | 2016-07-30 18:38 | NUR ---
GPS RN NOTE Called Vidya MANZANARES with PT/INR (35.7/3.10) results with new order to hold Coumadin dose today and check PT/INR (Lab) tomorrow.
[2016-07-30 20:17] VITALS: BP 100/53
[2016-07-30] MEDS: SIMVASTATIN 20 MG TABLET PO SCH (21:13)
[2016-07-30] MEDS ORDERED: TRAZODONE 50 MG TABLET PO SCH (22:00)
[2016-07-30] MEDS: ZOLPIDEM TARTRATE 10 MG TABLET PO PRN (22:16)
[2016-07-30] MEDS: LORAZEPAM 0.5 MG TABLET PO PRN (23:14)
[2016-07-31] MEDS: BOOST FOOD- BERRY 237 ML BOX PO SCH ×3 (06:11→13:07)
[2016-07-31 07:27] LABS: BASOPHILS % (AUTO) 0.3 % (0.0-2.0); EOSINOPHILS % (AUTO) 0.1 % (0.0-6.0); HEMATOCRIT 45 % (39-51); HEMOGLOBIN 15.1 g/dL (13.5-17.5); LYMPHOCYTES # (AUTO) 1.6 /CMM (0.8-4.8); LYMPHOCYTES % (AUTO) 14.9 % (20.0-44.0); MEAN CORPUSCULAR HEMOGLOBIN 30 PG (26.0-33.0); MEAN CORPUSCULAR HGB CONC 33 g/dl (31.0-36.0); MEAN CORPUSCULAR VOLUME 89 fL (80-96); MONOCYTES # (AUTO) 0.8 /CMM (0.1-1.30); MONOCYTES % (AUTO) 7.1 % (2.0-12.0); NEUTROPHILS # (AUTO) 8.3 /CMM (1.8-8.9); NEUTROPHILS % (AUTO) 77.6 % (43.0-81.0); PLATELET COUNT (AUTO) 268 /CMM (150-450); RDW COEFFICIENT OF VARIATION 14.2 (11.5-15.0); RED BLOOD CELL COUNT(AUTO) 5.09 MIL/uL (4.5-6.0); WHITE BLOOD COUNT (AUTO) 10.7 K/uL (4.3-11.0)
[2016-07-31 07:35] LABS: INR 2.96 (0.87-1.13)
[2016-07-31 07:47] LABS: CALCIUM, SERUM 10.1 mg/dL (8.5-10.1); CREATININE 1.8 mg/dL (0.6-1.3); MAGNESIUM 2.3 mg/dL (1.8-2.4); PHOSPHORUS 4.8 mg/dL (2.5-4.9); POTASSIUM 3.7 mmol/L (3.5-5.1)
[2016-07-31] MEDS: CHOLECALCIFEROL 1,000 UNIT TABLET (VIT D3) PO SCH (09:00)
[2016-07-31 09:22] VITALS: BP 117/74
[2016-07-31] MEDS: MEGESTROL ACETATE SUSP 400 MG/10 ML UDC PO SCH (13:03)
[2016-07-31] MEDS: MULTIVIT, IRON, MIN NO. 8, FA 1 TAB TABLET PO SCH (13:03)
[2016-07-31] MEDS: MEMANTINE HCL 5 MG TABLET PO SCH ×2 (13:03→18:53)
[2016-07-31] MEDS: TAMSULOSIN 0.4 MG CAP.SR.24H PO SCH (13:03)
[2016-07-31] MEDS: NEOMY SULF/BACITRAC ZN/POLY 15 GM TUBE TP SCH (13:04)
--- NOTE | 2016-07-31 14:39 | NUR ---
EDY spoke with Ibis from [facility] [address] [place] [address] who confirmed that pt. can return when ready.
[2016-07-31 16:31] VITALS: BP 102/96
[2016-07-31] MEDS: TRAZODONE 50 MG TABLET PO SCH (18:54)
[2016-07-31] MEDS: ARIPIPRAZOLE 2 MG TABLET PO SCH (18:54)
[2016-07-31] MEDS: WARFARIN SODIUM 2 MG TABLET PO SCH (18:54)
[2016-07-31 20:02] VITALS: BP 119/68
[2016-07-31] MEDS: LORAZEPAM 0.5 MG TABLET PO PRN (21:06)
[2016-07-31] MEDS: SIMVASTATIN 20 MG TABLET PO SCH (21:06)
[2016-08-01] MEDS: BOOST FOOD- BERRY 237 ML BOX PO SCH ×3 (06:10→14:05)
[2016-08-01 07:09] LABS: BASOPHILS % (AUTO) 0.6 % (0.0-2.0); EOSINOPHILS # (AUTO) 0.1 /CMM (0.0-0.7); EOSINOPHILS % (AUTO) 1.4 % (0.0-6.0); HEMATOCRIT 44 % (39-51); HEMOGLOBIN 14.6 g/dL (13.5-17.5); INR 3.05 (0.87-1.13); LYMPHOCYTES # (AUTO) 1.4 /CMM (0.8-4.8); LYMPHOCYTES % (AUTO) 17.7 % (20.0-44.0); MEAN CORPUSCULAR HEMOGLOBIN 30 PG (26.0-33.0); MEAN CORPUSCULAR HGB CONC 33 g/dl (31.0-36.0); MEAN CORPUSCULAR VOLUME 89 fL (80-96); MONOCYTES # (AUTO) 0.7 /CMM (0.1-1.30); MONOCYTES % (AUTO) 9.2 % (2.0-12.0); NEUTROPHILS # (AUTO) 5.6 /CMM (1.8-8.9); NEUTROPHILS % (AUTO) 71.1 % (43.0-81.0); PLATELET COUNT (AUTO) 257 /CMM (150-450); PROTHROMBIN TIME 35.1 SECS (9.5-12.7); RDW COEFFICIENT OF VARIATION 14.5 (11.5-15.0); RED BLOOD CELL COUNT(AUTO) 4.95 MIL/uL (4.5-6.0); WHITE BLOOD COUNT (AUTO) 7.9 K/uL (4.3-11.0)
[2016-08-01 07:31] LABS: CALCIUM, SERUM 10.4 mg/dL (8.5-10.1); CREATININE 1.4 mg/dL (0.6-1.3); MAGNESIUM 2.4 mg/dL (1.8-2.4); PHOSPHORUS 3.7 mg/dL (2.5-4.9); POTASSIUM 3.5 mmol/L (3.5-5.1)
[2016-08-01 08:00] VITALS: BP 115/72
--- NOTE | 2016-08-01 08:00 | NUR ---
RN NOTES RECEIVED PT RESTING IN GERICHAIR WITH NAD. NOTED WITH CONFUSION, REDIRECTED AND REORIENTED PT TO REALITY. SAFETY ENSURED. NO SUICIDAL OR HOMICIDAL IDEATION NOTED
[2016-08-01] MEDS: TAMSULOSIN 0.4 MG CAP.SR.24H PO SCH (09:04)
[2016-08-01] MEDS: MEMANTINE HCL 5 MG TABLET PO SCH ×2 (09:04→16:57)
[2016-08-01] MEDS: MEGESTROL ACETATE SUSP 400 MG/10 ML UDC PO SCH (09:04)
[2016-08-01] MEDS: MULTIVIT, IRON, MIN NO. 8, FA 1 TAB TABLET PO SCH (09:05)
[2016-08-01] MEDS: POTASSIUM CHLORIDE 10 MEQ TABLET.SA PO SCH (09:05)
[2016-08-01] MEDS: NEOMY SULF/BACITRAC ZN/POLY 15 GM TUBE TP SCH (10:21)
--- NOTE | 2016-08-01 15:55 | NUR ---
CLARIFIED COUMADIN WITH VELVET AND STATED TO HOLD COUMADIN TODAY AND GIVE THE NEW COUMADIN ORDER TOMANUEL.
[2016-08-01 15:56] VITALS: BP 125/67
[2016-08-01 16:00] VITALS: BP 125/67
[2016-08-01] MEDS: WARFARIN SODIUM 1 MG TABLET PO SCH (16:43)
[2016-08-01] MEDS: TRAZODONE 50 MG TABLET PO SCH (17:54)
[2016-08-01] MEDS: ARIPIPRAZOLE 2 MG TABLET PO SCH (17:54)
--- NOTE | 2016-08-01 19:30 | NUR ---
GPSRN SEEN BY DR. DURAN, ORDERS RECEIVED. FULLY AWAKE, UNCOOPERATIVE,NOT GETTING OUT OF BED. NEEDS CONSTANT OBSERVATION. HFR..
[2016-08-01 20:00] VITALS: BP 134/63
[2016-08-01] MEDS ORDERED: ARIPIPRAZOLE 5 MG TABLET PO ONE (20:30)
[2016-08-01] MEDS ORDERED: TRAZODONE 50 MG TABLET PO ONE (20:30)
[2016-08-01] MEDS: SIMVASTATIN 20 MG TABLET PO SCH (22:00)
--- NOTE | 2016-08-01 22:20 | NUR ---
GPSRN DUE MEDS GIVEN WITH APPLE SAUCE, ABLE TO TAKE MEDS AT THIS TIME. ENCOURAGED TO FINISH APPLE SAUCE, SPITTED. INCONTINENT, KEPT DRY CLEAN AND COMFORTABLE.
--- NOTE | 2016-08-02 03:45 | NUR ---
GPSRN SLEPT ONLY SHORT PERIOD OF TIME.. CLOSELY WATCHED.
[2016-08-02] MEDS: BOOST FOOD- BERRY 237 ML BOX PO SCH ×3 (06:46→15:34)
[2016-08-02 07:58] LABS: BASOPHILS % (AUTO) 0.3 % (0.0-2.0); EOSINOPHILS % (AUTO) 0.5 % (0.0-6.0); HEMATOCRIT 42 % (39-51); LYMPHOCYTES % (AUTO) 11.6 % (20.0-44.0); MEAN CORPUSCULAR HEMOGLOBIN 30 PG (26.0-33.0); MEAN CORPUSCULAR HGB CONC 33 g/dl (31.0-36.0); MEAN CORPUSCULAR VOLUME 89 fL (80-96); MONOCYTES # (AUTO) 0.6 /CMM (0.1-1.30); NEUTROPHILS # (AUTO) 6.6 /CMM (1.8-8.9); NEUTROPHILS % (AUTO) 80.6 % (43.0-81.0); PLATELET COUNT (AUTO) 240 /CMM (150-450); RDW COEFFICIENT OF VARIATION 14.4 (11.5-15.0); RED BLOOD CELL COUNT(AUTO) 4.74 MIL/uL (4.5-6.0); WHITE BLOOD COUNT (AUTO) 8.2 K/uL (4.3-11.0)
[2016-08-02 08:45] VITALS: BP 118/71
[2016-08-02 09:00] LABS: CREATININE 1.3 mg/dL (0.6-1.3); MAGNESIUM 2.1 mg/dL (1.8-2.4); PHOSPHORUS 3.4 mg/dL (2.5-4.9); POTASSIUM 3.3 mmol/L (3.5-5.1)
[2016-08-02 10:13] LABS: INR 3.63 (0.87-1.13); PROTHROMBIN TIME 42.2 SECS (9.5-12.7)
[2016-08-02] MEDS: TAMSULOSIN 0.4 MG CAP.SR.24H PO SCH (10:44)
[2016-08-02] MEDS: MULTIVIT, IRON, MIN NO. 8, FA 1 TAB TABLET PO SCH (10:44)
[2016-08-02] MEDS: MEGESTROL ACETATE SUSP 400 MG/10 ML UDC PO SCH (10:45)
[2016-08-02] MEDS: MEMANTINE HCL 5 MG TABLET PO SCH ×2 (10:45→17:19)
[2016-08-02] MEDS: CHOLECALCIFEROL 1,000 UNIT TABLET (VIT D3) PO SCH (10:47)
[2016-08-02] MEDS: NEOMY SULF/BACITRAC ZN/POLY 15 GM TUBE TP SCH (10:49)
--- NOTE | 2016-08-02 12:39 | NUR ---
EDY spoke with Dr. Lara and it was determined that if facility accepts the patient then pt. can be discharged on Friday. EDY spoke with pt's daughter, Hedy [phone], work phone [phone], and she notified that someone from [facility] will come to assess the patient. Addendum: 08/02/16 at 1743 by ABRAN SNOW Pt's Kathy Carrizales [phone] and Lenin Buenrostro from the board and care came to assess the patient. Pt. was not able to be assessed as he was sleeping. Hedy asks for pt. to stay longer so Lenin can come assess again on Friday. Will notify the doctor.
[2016-08-02 16:27] VITALS: BP 123/68
[2016-08-02] MEDS ORDERED: POTASSIUM CHLORIDE 20 MEQ TAB.PRT.SR PO ONE (16:30)
[2016-08-02] MEDS: WARFARIN SODIUM 1 MG TABLET PO SCH (17:00)
[2016-08-02] MEDS ORDERED: ARIPIPRAZOLE 2 MG TABLET PO SCH (18:00)
[2016-08-02] MEDS ORDERED: TRAZODONE 50 MG TABLET PO SCH (18:00)
--- NOTE | 2016-08-02 19:30 | NUR ---
GPS RN NOTE, RECEIVED PATIENT AWAKE AND IN BED, NO S/S OR COMPLAINTS OF PAIN AT THIS TIME. PATIENT IS DISPLAYING NO S/S OF APPARENT DISTRESS AT THIS TIME. PATIENT BREATHING IS UNLABORED WITH EQUAL RISE AND FALL OF THE CHEST. PATIENT IS ALERT AND ORIENTED X 1 ON ROOM AIR WITH A SPO2 95%. PATIENT COMPLIANT WITH MEDICATIONS, ANXIOUS, EASILY AGITATED WITH CARE, DISORGANIZED, CONFUSED AT TIMES, AND NEEDS REORIENTATION. PATIENT DENIES SUICIDE AND HOMICIDAL IDEATIONS AT THIS TIME. PATIENT ASSISTED WITH TURNING AND REPOSITIONING Q2HR AND PRN FOR COMFORT AND CIRCULATION. PATIENT HAS NO NEEDS AT THIS TIME. PATIENT REFUSED SKIN ASSESSMENT TODAY. PATIENT EDUCATED ON THE USE OF THE CALL POST. PATIENT BED SIDE RAILS UP X2 FOR SAFETY, BED IS LOCKED AND LOW WILL CONTINUE TO MONITOR AND MAINTAIN SAFETY.
[2016-08-02 20:15] VITALS: BP 127/64
[2016-08-02] MEDS: SIMVASTATIN 20 MG TABLET PO SCH (21:48)
[2016-08-03] MEDS: BOOST FOOD- BERRY 237 ML BOX PO SCH ×3 (07:05→14:45)
[2016-08-03 07:16] LABS: INR 3.48 (0.87-1.13); PROTHROMBIN TIME 40.3 SECS (9.5-12.7)
[2016-08-03 08:31] VITALS: BP 139/79
[2016-08-03] MEDS: MULTIVIT, IRON, MIN NO. 8, FA 1 TAB TABLET PO SCH (09:17)
[2016-08-03] MEDS: TAMSULOSIN 0.4 MG CAP.SR.24H PO SCH (09:17)
[2016-08-03] MEDS: MEMANTINE HCL 5 MG TABLET PO SCH ×2 (09:17→17:41)
[2016-08-03] MEDS: MEGESTROL ACETATE SUSP 400 MG/10 ML UDC PO SCH (09:17)
[2016-08-03] MEDS: POTASSIUM CHLORIDE 10 MEQ TABLET.SA PO SCH (09:17)
[2016-08-03] MEDS: NEOMY SULF/BACITRAC ZN/POLY 15 GM TUBE TP SCH (09:18)
[2016-08-03] MEDS ORDERED: IV D5/0.45 NACL 1,000 ML IV ONE (15:00)
[2016-08-03 16:03] VITALS: BP 156/90
[2016-08-03] MEDS: WARFARIN SODIUM 1 MG TABLET PO SCH (17:00)
--- NOTE | 2016-08-03 17:00 | NUR ---
PATIENT A/O X 1, CONFUSED, DISORGANIZED THOUGHTS, IRRITABLE, POOR EATER, HARD TO FOLLOW DIRECTION, RUNNING IV ON LEFT FOREARM D5W 0.45 NS 100 ML/HR 1000L ONLY, INTACT, NO INFILTRATION. NEEDS ATTENDED AND ANTICIPATED, SAFETY PRECAUTION MAINTAINED ALL THE TIME. ENDORSED ONCOMING NURSE FOR CONTINUATION OF CARE.
--- NOTE | 2016-08-03 19:30 | NUR ---
GPS RN NOTE, RECEIVED PATIENT AWAKE AND IN BED, NO S/S OR COMPLAINTS OF PAIN AT THIS TIME. PATIENT IS DISPLAYING NO S/S OF APPARENT DISTRESS AT THIS TIME. PATIENT BREATHING IS UNLABORED WITH EQUAL RISE AND FALL OF THE CHEST. PATIENT IS ALERT AND ORIENTED X 1 ON ROOM AIR WITH A SPO2 96%. PATIENT COMPLIANT WITH MEDICATIONS, ANXIOUS, EASILY AGITATED WITH CARE, DISORGANIZED, CONFUSED AT TIMES, AND NEEDS REORIENTATION. IVF D5 1/2 NS @ 100ML/HR INFUSING WELL WELL INTO LEFT FOREARM 22GAUGE THAT IS INTACT, PATENT, AND FLUSHING WELL WITH NO S/S OF INFILTRATION. PATIENT DENIES SUICIDE AND HOMICIDAL IDEATIONS AT THIS TIME. PATIENT ASSISTED WITH TURNING AND REPOSITIONING Q2HR AND PRN FOR COMFORT AND CIRCULATION. PATIENT HAS NO NEEDS AT THIS TIME. PATIENT REFUSED SKIN ASSESSMENT TODAY. PATIENT EDUCATED ON THE USE OF THE CALL POST. PATIENT BED SIDE RAILS UP X2 FOR SAFETY, BED IS LOCKED AND LOW WILL CONTINUE TO MONITOR AND MAINTAIN SAFETY.
[2016-08-03 19:58] VITALS: BP 148/69
[2016-08-03] MEDS: SIMVASTATIN 20 MG TABLET PO SCH (21:38)
[2016-08-04] MEDS: BOOST FOOD- BERRY 237 ML BOX PO SCH ×3 (06:20→17:25)
[2016-08-04 06:59] LABS: INR 3.39 (0.87-1.13); PROTHROMBIN TIME 39.2 SECS (9.5-12.7)
[2016-08-04 08:00] VITALS: BP 100/63
[2016-08-04] MEDS: MULTIVIT, IRON, MIN NO. 8, FA 1 TAB TABLET PO SCH (08:35)
[2016-08-04] MEDS: MEMANTINE HCL 5 MG TABLET PO SCH ×2 (08:35→17:27)
[2016-08-04] MEDS: MEGESTROL ACETATE SUSP 400 MG/10 ML UDC PO SCH (08:35)
[2016-08-04] MEDS: NEOMY SULF/BACITRAC ZN/POLY 15 GM TUBE TP SCH (08:36)
[2016-08-04] MEDS: TAMSULOSIN 0.4 MG CAP.SR.24H PO SCH (08:36)
[2016-08-04 09:03] LABS: CALCIUM, SERUM 10.1 mg/dL (8.5-10.1); CREATININE 1.3 mg/dL (0.6-1.3); POTASSIUM 3.6 mmol/L (3.5-5.1)
[2016-08-04 16:00] VITALS: BP 100/59
[2016-08-04] MEDS ORDERED: IV D5W 1,000 ML IV ONE (17:00)
[2016-08-04] MEDS: WARFARIN SODIUM 1 MG TABLET PO SCH (17:00)
--- NOTE | 2016-08-04 19:55 | NUR ---
GPS OPENING NOTES RECEIVED Pt AWAKE, RESTING IN BED. NO S/S OF ACUTE DISTRESS OR SOB NOTED. Pt BREATHING IS UNLABORED WITH EQUAL RISE AND FALL OF THE CHEST. NO SIGNS OF PAIN NOTED AT THIS TIME. Pt IS A/OX1, CONFUSED. IV ACCESS ON LFA #22G, IVF D5W1/2NS @100ML/HR, INFUSING WELL. WILL DISCONNECT IV LINE ONCE BAG IS DONE. SAFETY MEASURES IN PLACE. BED LOW, LOCKED, HOB ELEVATED, SIDE RAILS UP, BED ALARM ON. WILL CONTINUE TO MONITOR Pt THROUGHOUT THE NIGHT AND MAINTAIN SAFETY.
[2016-08-04 20:13] VITALS: BP 122/81
[2016-08-04] MEDS: SIMVASTATIN 20 MG TABLET PO SCH (22:22)
[2016-08-05] MEDS: BOOST FOOD- BERRY 237 ML BOX PO SCH ×3 (05:56→13:14)
--- NOTE | 2016-08-05 06:50 | NUR ---
RN CLOSING NOTES NO SIGNIFICANT CHANGES. NO S/S OF ACUTE DISTRESS OR SOB NOTED DURING THE NIGHT. IV ACCESS ON LFA #22G, SL. ALL SAFETY MEASURES CARRIED OUT. ALL NEEDS MET AND ATTENDED TO. WILL ENDORSE TO DAYSHIFT RN FOR Pt's CHRISTIANO.
[2016-08-05 07:50] LABS: CALCIUM, SERUM 9.5 mg/dL (8.5-10.1); CREATININE 1.4 mg/dL (0.6-1.3); POTASSIUM 3.3 mmol/L (3.5-5.1)
[2016-08-05 08:00] VITALS: BP 138/107
[2016-08-05] MEDS: MEGESTROL ACETATE SUSP 400 MG/10 ML UDC PO SCH (08:10)
[2016-08-05] MEDS: POTASSIUM CHLORIDE 10 MEQ TABLET.SA PO SCH (08:10)
[2016-08-05] MEDS: TAMSULOSIN 0.4 MG CAP.SR.24H PO SCH (08:11)
[2016-08-05] MEDS: MULTIVIT, IRON, MIN NO. 8, FA 1 TAB TABLET PO SCH (08:11)
[2016-08-05] MEDS: MEMANTINE HCL 5 MG TABLET PO SCH ×2 (08:11→16:59)
[2016-08-05] MEDS: NEOMY SULF/BACITRAC ZN/POLY 15 GM TUBE TP SCH (08:12)
[2016-08-05] MEDS: CHOLECALCIFEROL 1,000 UNIT TABLET (VIT D3) PO SCH (08:16)
[2016-08-05] MEDS ORDERED: POTASSIUM CHLORIDE 20 MEQ TAB.PRT.SR PO SCH (12:00)
--- NOTE | 2016-08-05 14:38 | NUR ---
EDY met with Lenin Buenrostro [phone] and Lew Wilcox [phone] from [address] [place] [facility] [address] who came to assess the patient again. Per Lenin, they are able to accept the patient but will be able to take him on Friday as some things need to be sorted out first before pt. can be transferred. EDY notified the MD.
[2016-08-05 16:00] VITALS: BP 109/73
[2016-08-05 16:14] LABS: INR 2.78 (0.87-1.13); PROTHROMBIN TIME 31.8 SECS (9.5-12.7)
[2016-08-05] MEDS: WARFARIN SODIUM 1 MG TABLET PO SCH (16:59)
[2016-08-05] MEDS ORDERED: IV D5W 1,000 ML IV ONE (18:30)
--- NOTE | 2016-08-05 19:30 | NUR ---
RN OPENING NOTES: RECEIVED PATIENT IN THE ACTIVITY ROOM ON A GERICHAIR, AWAKE AND ALERT TO NAME, BUT GENERALLY CONFUSED, DENIES ACTIVE PLANS OF SI/HI. PATIENT IN ROOM AIR NOT IN APPARENT DISTRESS. PATIENT IS CALM BUT WITH TENDENCY TO REFUSE CARE. IV ACCESS NOTED ON LFA G22 INTACT AND FLUSHING WELL. WITH MD ORDERS FOR D5W IV FLUIDS TO RUN FOR 10 HRS. WITH SITTER DURING IV HYDRATION. MEDS CRUSHED WITH APPLE SAUCE. ASPIRATION PRECAUTION OBSERVED AT ALL TIMES. SKIN CARE RENDERED. ANTICIPATED AND ATTENDED NEEDS. SAFETY MEASURES ENSURED. FREQUENT CHECKS [id number] DONE PER UNIT PROTOCOL. MONITORED PT FOR SAFETY AND BEHAVIOR.
[2016-08-05 19:47] VITALS: BP 144/76
[2016-08-05] MEDS ORDERED: IV SET PRIMARY PUMP SET 1 EA INFUS.SET MC ONE (20:40)
--- NOTE | 2016-08-05 21:00 | NUR ---
RN NOTES; PT STARTED ON IVF ORDERED. WITH IV ACCESS ON RFA G22 PATENT AND INTACT, NO S/SX OF INFILTRATION NOTED. CONTINUOUSLY MONITORED IV FOR PATENCY. SAFETY MEASURES ENSURED.
[2016-08-05] MEDS: SIMVASTATIN 20 MG TABLET PO SCH (21:03)
[2016-08-05] MEDS: QUETIAPINE FUMARATE 25 MG TABLET PO SCH (21:03)
[2016-08-06] MEDS: BOOST FOOD- BERRY 237 ML BOX PO SCH ×3 (06:35→14:16)
[2016-08-06 06:58] LABS: CALCIUM, SERUM 9.3 mg/dL (8.5-10.1); CREATININE 1.4 mg/dL (0.6-1.3); POTASSIUM 3.2 mmol/L (3.5-5.1)
[2016-08-06 08:00] VITALS: BP_SYST 100; BP_SYST 120; BP_DIAS 61; BP_DIAS 65
[2016-08-06] MEDS: TAMSULOSIN 0.4 MG CAP.SR.24H PO SCH (08:42)
[2016-08-06] MEDS: MEMANTINE HCL 5 MG TABLET PO SCH ×2 (08:42→17:22)
[2016-08-06] MEDS: MEGESTROL ACETATE SUSP 400 MG/10 ML UDC PO SCH (08:42)
[2016-08-06] MEDS: DOCUSATE SODIUM 100 MG CAPSULE PO PRN (08:42)
[2016-08-06] MEDS: MULTIVIT, IRON, MIN NO. 8, FA 1 TAB TABLET PO SCH (08:42)
[2016-08-06] MEDS: NEOMY SULF/BACITRAC ZN/POLY 15 GM TUBE TP SCH (08:43)
[2016-08-06] MEDS ORDERED: POTASSIUM CHLORIDE 20 MEQ TAB.PRT.SR PO ONE (13:00)
[2016-08-06 16:00] VITALS: BP 112/71
[2016-08-06] MEDS ORDERED: IV NS 0.9% 500 ML IV ONE (16:30)
[2016-08-06] MEDS: WARFARIN SODIUM 1 MG TABLET PO SCH (17:23)
--- NOTE | 2016-08-06 19:50 | NUR ---
GPS RN NOTES: RECEIVED NEW ORDER OF CHEST XRAY FROM DR. DURAN NOTED AND CARRIED OUT.
[2016-08-06 20:06] VITALS: BP 131/61
[2016-08-06] MEDS: SIMVASTATIN 20 MG TABLET PO SCH (21:53)
[2016-08-06] MEDS: QUETIAPINE FUMARATE 25 MG TABLET PO SCH (21:53)
[2016-08-07] MEDS: BOOST FOOD- BERRY 237 ML BOX PO SCH ×3 (05:52→13:45)
[2016-08-07 07:15] LABS: CALCIUM, SERUM 9.3 mg/dL (8.5-10.1); CREATININE 1.3 mg/dL (0.6-1.3); POTASSIUM 3.3 mmol/L (3.5-5.1)
[2016-08-07 08:00] VITALS: BP 130/78
[2016-08-07] MEDS: MEMANTINE HCL 5 MG TABLET PO SCH ×2 (08:28→17:10)
[2016-08-07] MEDS: MULTIVIT, IRON, MIN NO. 8, FA 1 TAB TABLET PO SCH (08:28)
[2016-08-07] MEDS: POTASSIUM CHLORIDE 10 MEQ TABLET.SA PO SCH (08:28)
[2016-08-07] MEDS: TAMSULOSIN 0.4 MG CAP.SR.24H PO SCH (08:28)
[2016-08-07] MEDS: MEGESTROL ACETATE SUSP 400 MG/10 ML UDC PO SCH (08:29)
[2016-08-07] MEDS: CHOLECALCIFEROL 1,000 UNIT TABLET (VIT D3) PO SCH (08:40)
--- NOTE | 2016-08-07 09:45 | NUR ---
SW spoke to pt's daughter Hedy Carrizales [phone] who was notified that pt. may need to be transferred to the medical floor due to poor food and fluid intake.
[2016-08-07 10:32] LABS: BASOPHILS % (AUTO) 0.6 % (0.0-2.0); EOSINOPHILS # (AUTO) 0.2 /CMM (0.0-0.7); EOSINOPHILS % (AUTO) 3.4 % (0.0-6.0); HEMATOCRIT 40 % (39-51); HEMOGLOBIN 13.1 g/dL (13.5-17.5); LYMPHOCYTES # (AUTO) 1.5 /CMM (0.8-4.8); LYMPHOCYTES % (AUTO) 24.1 % (20.0-44.0); MEAN CORPUSCULAR HEMOGLOBIN 30 PG (26.0-33.0); MEAN CORPUSCULAR HGB CONC 33 g/dl (31.0-36.0); MEAN CORPUSCULAR VOLUME 89 fL (80-96); MONOCYTES # (AUTO) 0.7 /CMM (0.1-1.30); MONOCYTES % (AUTO) 10.8 % (2.0-12.0); NEUTROPHILS # (AUTO) 3.8 /CMM (1.8-8.9); NEUTROPHILS % (AUTO) 61.1 % (43.0-81.0); PLATELET COUNT (AUTO) 240 /CMM (150-450); RDW COEFFICIENT OF VARIATION 14.8 (11.5-15.0); RED BLOOD CELL COUNT(AUTO) 4.43 MIL/uL (4.5-6.0); WHITE BLOOD COUNT (AUTO) 6.2 K/uL (4.3-11.0)
[2016-08-07 10:50] LABS: INR 2.7 (0.87-1.13); PROTHROMBIN TIME 30.8 SECS (9.5-12.7)
[2016-08-07] MEDS: NEOMY SULF/BACITRAC ZN/POLY 15 GM TUBE TP SCH (10:58)
--- NOTE | 2016-08-07 13:00 | NUR ---
gps/rn Patient refusing meals during shift, swallow evaluation ordered, will continue to monitor.
[2016-08-07 16:00] VITALS: BP 144/64
[2016-08-07] MEDS: WARFARIN SODIUM 1 MG TABLET PO SCH (17:12)
--- NOTE | 2016-08-07 19:46 | NUR ---
GPS RN NOTES PT RESTING COMFORTABLY IN BED, A/OX1. NO SIGNS OF DISTRESS, SOB OR PAIN NOTED. BREATHING EVEN AND UNLABORED. IV TO LFA IN PLACE. BED IN LOW/LOCKED POSITION, SEMI FOWLERS POSITION. BED RAILS UP, BED ALARM ON. WILL CONTINUE TO MONITOR
[2016-08-07 20:00] VITALS: BP 138/72
[2016-08-07 20:27] VITALS: BP 138/72
[2016-08-07] MEDS: SIMVASTATIN 20 MG TABLET PO SCH (22:20)
[2016-08-07] MEDS: QUETIAPINE FUMARATE 25 MG TABLET PO SCH (22:20)
--- NOTE | 2016-08-08 02:00 | NUR ---
GPS/RN NOTES PT ASLEEP, BREATHING EVEN AND UNLABORED. NO SIGNS OF DISTRESS. WILL CONTINUE TO MONITOR
[2016-08-08] MEDS: BOOST FOOD- BERRY 237 ML BOX PO SCH ×3 (06:03→14:00)
--- NOTE | 2016-08-08 06:45 | NUR ---
GPS/RN CLOSING NOTES PT AWAKE, A/OX1, CONFUSED. BREATHING EVEN AND UNLABORED. NO S/S OF DISTRESS. PT SLEPT INTERMITTENTLY THROUGHOUT THE NIGHT. ENCOURAGE FLUIDS THROUGHOUT NIGHT AND MORNING BOOST. PT ONLY TOOK A COUPLE SIPS OF BOOST. ORIENTED PT PRN. SAFETY PRECAUTIONS IMPLEMENTED THROUGHOUT SHIFT. TURNED AND REPOSITIONED Q2H, OFFLOADED EXTREMITIES. WILL ENDORSE TO AM SHIFT CHRISTIANO. Addendum: 08/08/16 at 0655 by ESTEBAN SHRESTHA RN FREQUENT VISUAL CHECKS.
[2016-08-08 07:07] LABS: CALCIUM, SERUM 9.6 mg/dL (8.5-10.1); CREATININE 1.3 mg/dL (0.6-1.3); POTASSIUM 4.1 mmol/L (3.5-5.1)
[2016-08-08 08:00] VITALS: BP 124/64
[2016-08-08] MEDS: MULTIVIT, IRON, MIN NO. 8, FA 1 TAB TABLET PO SCH (08:46)
[2016-08-08] MEDS: MEGESTROL ACETATE SUSP 400 MG/10 ML UDC PO SCH (08:46)
[2016-08-08] MEDS: TAMSULOSIN 0.4 MG CAP.SR.24H PO SCH (08:46)
[2016-08-08] MEDS: MEMANTINE HCL 5 MG TABLET PO SCH (08:46)
[2016-08-08] MEDS: NEOMY SULF/BACITRAC ZN/POLY 15 GM TUBE TP SCH (09:04)
--- NOTE | 2016-08-08 10:00 | NUR ---
GPS/RN Patient is combative, striking out at staff, unable to render full wound care, was only able to apply antibiotic ointment,explained risks and benefits, patient is confused, will continue to encourage patient to comply with regimen.
--- NOTE | 2016-08-08 12:14 | NUR ---
SW left a voicemail for Lenin Buenrostro [phone] from facility to confirm today's discharge. SW also left a voicemail for pt's daughter, Hedy [phone] confirming today's discharge.
--- NOTE | 2016-08-08 12:55 | NUR ---
DR. DURAN WITH AN ORDER TO D/C HOLD AND D/C TO [facility]. WITHOUT DISTRESS, DENIES SUICIDAL AND HOMICIDAL. TO FOLLOW UP WITH PSYCH AND MEDICAL DOCTORS.
--- NOTE | 2016-08-08 15:00 | NUR ---
GPS/RN PATIENT CLEARED FOR DISCHARGE TO [facility] BY DR DURAN AND DR LUGO. ALL DISCHARGE PAPERWORK COMPLETED AND CO SIGNED BY 2 RN, PATIENT UNABLE TO SIGN. ALL BELONGINGS RETURNED, PRESCRIPTIONS INCLUDED,EXPLAINED TO PATIENT BUT UNABLE TO COMPREHEND AT THIS TIME, TREATMENT PLANS MET, PICTURES TAKEN, PATIENT LEFT UNIT IN STABLE CONDITION, NO MAJOR DISTRESS, EMT AT SIDE.
--- NOTE | 2016-08-08 15:33 | NUR ---
Discharge note: Pt. was discharged to [address] [place] [address] via [facility] early [facility] Lenin Buenrostro [phone] was notified. Pt's daughter, Hedy [phone] was also notified via voicemail. SW Faxed home health order and a hospital bed and wheelchair orders to [facility] [phone] and followed up with Rafael from the agency. Pt. was calm and cooperative upon discharge, no suicidal/homicidal ideations were expressed. Pt's family was agreeable with discharge plan and the facility was suggested by them. Discharge instructions were provided to the transportation personnel and discharge paperwork has been signed. Pt. will follow up with Dr. Lara [phone] and professor/nurse anesthetist Dr. Oliva [phone]
== END 2016-08-08 15:00 | disposition home or self-care (01) | DRG 885 ==
LOC: ER 13:56 → GPS 15:59
PROVIDERS: ADMIT Psychiatry & Neurology Psychiatry
DX: F29 Unspecified psychosis not due to a substance or known physiological condition (principal); F02.81 Dementia in other diseases classified elsewhere, unspecified severity, with behavioral disturbance; N17.9 Acute kidney failure, unspecified; E87.0 Hyperosmolality and hypernatremia; J98.11 Atelectasis; G30.9 Alzheimer's disease, unspecified; F41.9 Anxiety disorder, unspecified; I10 Essential (primary) hypertension; R62.7 Adult failure to thrive; E78.5 Hyperlipidemia, unspecified; E86.0 Dehydration; E87.6 Hypokalemia; F32.9 Major depressive disorder, single episode, unspecified; G47.00 Insomnia, unspecified; N40.0 Benign prostatic hyperplasia without lower urinary tract symptoms; Z79.01 Long term (current) use of anticoagulants; Z86.711 Personal history of pulmonary embolism; Z86.718 Personal history of other venous thrombosis and embolism; Z91.19 Patient's noncompliance with other medical treatment and regimen
CPT/HCPCS: 36415; 71010-TC; 80048-TC; 80053-TC; 80061-TC; 80076-TC; 81000-TC; 83735-TC; 84100-TC; 85025-TC; 85610-TC; 85730-TC; 87081-TC; 87086-TC; 92611-TC; 97001-TC; 97116-TC; 97530-TC; A4606; A6402; G0480; G6039-TC; J3490; J7040; J7070; Z7610